=== PATIENT | female | born 1935 | race Caucasian/White ===

== ENCOUNTER 2019-09-26 02:47 | Emergency (ER) | payer MEDICARE ==
[2019-09-26] MEDS ORDERED: Morphine 2 MG/ML SYRINGE ONE ×2 (03:40→05:19)
[2019-09-26] MEDS ORDERED: Ondansetron PF 4 MG/2 ML Vial ONE (03:41)
[2019-09-26] MEDS ORDERED: Sodium Chloride 0.9% 1,000 ML ONE (03:41)
[2019-09-26 04:03] LABS: ALT (SGPT) 13 U/L (8-55); AST (SGOT) 17 U/L (5-34); Alkaline Phosphatase 103 U/L (40-110); Anion Gap 17 mmol/L (10-20); BUN (Urea Nitrogen) 16 mg/dL (9.8-20.1); Bilirubin, Total 0.8 mg/dL (0.2-1.2); Calc. Creatinine Clearance 0 mL/min (70-130); Calcium 9.3 mg/dL (7.8-10.44); Carbon Dioxide 20 mmol/L (23-31); Chloride 110 mmol/L (98-107); Estimated GFR-MDRD 56; Globulin 2.8 g/dL (2.4-3.5); Glucose 129 mg/dL (83-110); Lipase 39 U/L (8-78); Potassium 3.8 mmol/L (3.5-5.1); Protein, Total 6.8 g/dL (6.0-8.3); Sodium 143 mmol/L (136-145)
[2019-09-26 04:29] LABS: Hemoglobin 15.2 g/dL (12.0-16.0); Mean Corpuscular Hemoglobin 28.9 pg (27.0-31.0); Mean Corpuscular Volume 91.9 fL (78.0-98.0); Red Blood Cell (RBC) Count 5.24 mill/uL (4.20-5.40); White Blood Cell (WBC) Count 14.7 thou/uL (4.8-10.8)
[2019-09-26 04:30] LABS: %Lymphocytes 2.2 % (21.0-51.0); %Neutrophils 96.3 % (42.0-75.0); Manual Diff?? YES; Mean Corpuscular HGB CONC 31.5 g/dL (32.0-36.0); Platelet Count 221 thou/uL (130-400)
[2019-09-26 04:31] LABS: #Basophils 0.1 thou/uL (0.0-0.2); #Monocytes 0.1 thou/uL (0.11-0.59); #Neutrophils 14.2 thou/uL (1.40-6.50); %Basophils 0.5 % (0.0-1.0); Band 17 % (5-11); Eosinophils 0 % (0-10); Lymphocytes 3 % (21-51); MDiff Complete? YES; Monocytes 0 % (0-10); Neutrophil 80 % (42-75); Reactive Lymphocytes 0 % (0-10)
[2019-09-26 04:36] LABS: Clarity TURBID (Clear)
[2019-09-26 04:37] LABS: Bilirubin Small (Negative); Blood, Urine Large (Negative); Glucose, Urine (Dipstick) Negative (Negative); Leukocyte Large (Negative); Nitrite Positive (Negative); Protein, Urine (Dipstick) 100 mg/dL (Neg-Trace)
[2019-09-26 04:38] LABS: Bacteria/HPF 3+ HPF (None Seen); RBC/HPF Greater than 50 HPF (0-3); Squamous Epithelial 0-3 HPF (0-3); Yeast-Budding 1+ HPF (None Seen)
[2019-09-26] MEDS ORDERED: cefTRIAXone\\ROCEPHIN 2 GM VIAL ONE (04:59)
[2019-09-26] MEDS ORDERED: Gentamicin 80 MG/2 ML VIAL ONE (05:57)
[2019-09-26] MEDS ORDERED: Sodium Chloride 0.9% 100 ML BAG ONE (07:21)
--- NOTE | 2019-09-26 09:39 | RAD ---
CHEST 2 VIEWS: Date: 09/26/19 HISTORY: Chest and abdomen pain. Elevated D-Dimer. FINDINGS: Very severe scoliotic changes. There are fractured stabilization Borden rods noted on the right s sukhwinder and the left side. Severe left hemidiaphragm elevation. There is severe resultant deformity of th e chest, as well as the thoracolumbar vertebral column. No confluent pneumonia, overt edema, or pleur al effusion. IMPRESSION: Severe scoliotic deformity of the thoracolumbar vertebral column with resultant deformity of the ches t. Fractured Borden rods. No confluent pneumonia. POS: [facility]
[2019-09-26] MEDS ORDERED: Iopamidol 370 76% 125 ML VIAL FS ONE (09:40)
--- NOTE | 2019-09-26 09:46 | CT ---
PRELIMINARY REPORT/[facility]/AFTER HOURS PROCEDURE EXAM: CTA Chest with Intravenous Contrast CTA Abdomen and Pelvis with Intravenous Contrast. CLINICAL HISTORY: Elevated d dimer (2.65); h/o severe scoliosis; originally came in with chest pain which was dissipate d since she has been in the ER TECHNIQUE: Axial CTA images of the chest, abdomen and pelvis with intravenous contrast. MIP reconstructed images were created and reviewed. CONTRAST: With; ISOVUE 370 - 120 MLS COMPARISON: None provided. FINDINGS: VASCULATURE Aorta: Dense aortic atherosclerosis extending throughout the major arterial branches. Pulmonary arteries: The pulmonary arteries are adequately opacified. No pulmonary embolism. Great vessels of aortic arch: No acute finding. No dissection. No arterial occlusion or significant s tenosis. Celiac trunk: No acute finding. No occlusion or significant stenosis. Superior mesenteric artery: No acute finding. No occlusion or significant stenosis. Inferior mesenteric artery: No acute finding. No occlusion or significant stenosis. Renal arteries: No acute finding. No occlusion or significant stenosis. Iliac arteries: No acute finding. No occlusion or significant stenosis. CHEST Lungs: Unremarkable. No mass. No consolidation. Pleural spaces: No pleural effusion. No pneumothorax. Heart and mediastinum: No cardiomegaly. No significant pericardial effusion. ABDOMEN Liver: Unremarkable. No mass. Gallbladder and bile ducts: No calcified stone. No ductal dilation. Pancreas: Unremarkable. No ductal dilation. Spleen: Unremarkable. Adrenals: No mass. Kidneys and ureters: The kidneys enhance symmetrically. No hydronephrosis. No solid mass. Stomach and bowel: No obstruction. No bowel wall thickening. No CT evidence of acute diverticulitis. Appendix: No CT evidence for appendicitis. PELVIS Bladder: Unremarkable. Reproductive: Unremarkable as visualized. Peritoneum: No free fluid. No free air. Lymph nodes: No lymphadenopathy. Bones and soft tissues: Severe scoliosis with degenerative changes. Scoliosis fixation device with intramedullary rods. MISCELLANEOUS Elevation of the left hemidiaphragm. IMPRESSION: 1. Severe scoliosis with degenerative changes. 2. Dense aortic atherosclerosis extending throughout the major arterial branches. 3. Elevation of the left hemidiaphragm. ELECTRONICALLY SIGNED BY: Philippe Dunlap M.D. Sep 26, 2019 5:20:11 AM INDUSTRIAL CHEMIST This report is intended for review by the ordering physician only, in accordance of law. If you recei ve this report in error, please call [facility] at [phone]. FINAL REPORT CT ANGIOGRAM CHEST: CT ANGIOGRAM ABDOMEN HISTORY: Abnormal ultrasound suggested on recent noncontrast study. TECHNIQUE: CT angiogram of the thoracic and abdominal aorta performed in the axial plane. Three-dimensional refo rmatted images are submitted for interpretation. FINDINGS: No mediastinal mass, lymphadenopathy or hematoma. Trachea and central bronchi are patent. Chronic andreia nges in the lung parenchyma are suspected. Elevation of the left hemidiaphragm. CT ABDOMEN: Redemonstration of left sided hydronephrosis. Visualized ureter does not demonstrate any obvious obstructing calculus. Retrograde IVP may be beneficial. There is slight decreased enhancement of the left kidney. This was not commented upon the initial report by [facility]. No mesenteric mass, lymphadenopathy, free air or free fluid. Appropriate enhancement of the solid organs. There does appear to be a right hemicolectomy. No obvious colonic obstruction. Diverticulosis without evidence of diverticulitis. CT PELVIS: No abnormal enhancement. Uterus and adnexal structures are unremarkable. Osseous structures: Stable scoliosis. Thoracic and abdominal aorta: There is extensive calcified and noncalcified plaque. No aneurysm or di ssection. Ectasia of the aorta is compatible with the patient's scoliosis. There is short segment mod erate stenosis due to noncalcified plaque in the infrarenal and abdominal aorta. Celiac artery origin , superior mesenteric artery origin and bilateral renal artery ostia appear to be patent. Aortic bifu rcation, iliac arteries and inferior mesenteric artery are grossly unremarkable. IMPRESSION: 1. This report is in agreement with the initial report by [facility] in that there is extensive atherosclerosis without major branch occlusion however the initial report does not comment upon shor t segment moderate stenosis of the infrarenal abdominal aorta due to noncalcified plaque. Additionall y the initial report does not comment upon left sided hydronephrosis. 2. Slightly decreased enhancement of the left kidney when compared to the contralateral side secondar y to obstruction. This was not commented upon the initial report. The results of the study were discussed with Dr. Key in the ED on 09/26/2019 at 8:27 a.m. CODE QA POS: OFF
--- NOTE | 2019-09-26 10:16 | CT ---
PRELIMINARY REPORT/[facility]/EMERGENCY AFTER HOURS PROCEDURE: EXAM: CT Abdomen and Pelvis Without Intravenous Contrast CLINICAL HISTORY: Abd. pain r/o stone pain to back TECHNIQUE: Axial computed tomography images of the abdomen and pelvis without intravenous contrast. CONTRAST: None. COMPARISON: None provided. FINDINGS: LUNG BASES: No basilar airspace consolidation or pleural effusion. LIVER: Unremarkable. GALLBLADDER AND BILE DUCTS: Unremarkable. No calcified stone. No ductal dilation. PANCREAS: Unremarkable. SPLEEN: Unremarkable. ADRENAL GLANDS: Unremarkable. KIDNEYS, URETERS, AND BLADDER: Left parapelvic renal cysts. Nonobstructing right renal stone STOMACH AND BOWEL: No obstruction. No wall thickening. No CT evidence of colitis or acute diverticuli tis. APPENDIX: No CT evidence for appendicitis. PERITONEUM: No free fluid. No free air. LYMPH NODES: No lymphadenopathy. REPRODUCTIVE: Unremarkable as visualized. VASCULATURE: Dense aortic atherosclerosis ABDOMINAL WALL AND SOFT TISSUES: Unremarkable. BONES: Scoliosis is seen with thoracolumbar fusion. IMPRESSION: 1. Scoliosis deformity. 2. Nonobstructing right renal stone. 3. Left parapelvic renal cyst. 4. Sigmoid diverticulosis coli without diverticulitis ELECTRONICALLY SIGNED BY: Philippe Dunlap M.D. Sep 26, 2019 4:29:52 AM TREE MARKER This report is intended for review by the ordering physician only, in accordance of law. If you recei ve this report in error, please call [facility] at [phone]. FINAL REPORT CT ABDOMEN WITHOUT CONTRAST CT PELVIS WITHOUT CONTRAST: Date: 09/26/19 HISTORY: Pain. COMPARISON: None. FINDINGS: ABDOMEN CT: Lung bases are clear. Limited evaluation of solid organs by lack of IV contrast. Grossly no solid organ abnormality. No mesenteric mass, lymphadenopathy, free air, or free fluid. Limited evaluation of the alimentary canal by the absence of oral contrast. No evidence of small trista l obstruction. Findings suggest a right hemicolectomy. Left colon diverticulosis, without evidence of diverticulitis . Moderate left-sided hydronephrosis and dilatation of the visualized ureter. No obvious left ureteral calculus. Better evaluation with retrograde IVP is recommended. CT PELVIS: No calcifications within the urinary bladder. No pelvic mass, lymphadenopathy, free air, or free flui d. Marked scoliosis with evidence of previous fusion hardware placement. IMPRESSION: This report is in DISAGREEMENT with the preliminary report by [facility]. 1. There is left-sided hydronephrosis and hydroureter without definite obstructing calculus. Retrogr yanira IVP is recommended. 2. Diverticulosis, without evidence of diverticulitis. Results of study discussed with Dr. Bates on 09/26/19 at 0814 hours. CODE CR. POS: OFF
== END 2019-09-26 06:01 | disposition short-term general hospital (02) ==
LOC: MADERS 02:47
DX: A41.9 Sepsis, unspecified organism (principal); N10 Acute pyelonephritis; M41.9 Scoliosis, unspecified
CPT/HCPCS: 36415; 71046; 71275; 72191; 74175; 74176; 80053; 81003; 81015; 83605; 83690; 85025; 85379; 87040; 87077; 87086; 87149; 87186; 93005; 96361; 96365; 96375; J0696; J1580; J2270; J2405; J3490; J7050; Q9967

== ENCOUNTER 2023-07-07 20:55 | Emergency (ER) | payer MEDICARE ==
[2023-07-07 21:44] LABS: #Lymphocytes 0.5 thou/uL (1.20-3.40); #Monocytes 0.5 thou/uL (0.11-0.59); #Neutrophils 8.8 thou/uL (1.40-6.50); %Basophils 0.5 % (0.0-1.0); %Eosinophils 0.1 % (0.0-10.0); %Lymphocytes 5.2 % (21.0-51.0); %Neutrophils 89.3 % (42.0-75.0); Hematocrit 43.3 % (36.0-47.0); Hemoglobin 14.3 g/dL (12.0-16.0); Mean Corpuscular HGB CONC 33.1 g/dL (32.0-36.0); Mean Corpuscular Volume 93.5 fl (78.0-98.0); Mean Platelet Volume 8.7 fL (7.4-10.4); Platelet Count 270 10x3/uL (130-400); RBC Distribution Width 14.3 % (11.5-14.5); Red Blood Cell (RBC) Count 4.62 mill/uL (4.20-5.40); White Blood Cell (WBC) Count 9.9 10x3/uL (4.8-10.8)
[2023-07-07 21:49] LABS: Bacteria/HPF 3+ HPF (None Seen); Bilirubin Moderate (Negative); Blood, Urine Large (Negative); CAUTI Indications for Culture Pelvic or flank pain; Clarity Turbid (Clear); Glucose, Urine (Dipstick) 100 mg/dL (Negative); Ketone, Urine 40 mg/dL (Negative); Leukocyte Large (Negative); Nitrite Positive (Negative); Protein, Urine (Dipstick) > or equal to 300 mg/dL (Neg-Trace); RBC/HPF Greater than 50 HPF (0-3); WBC/HPF Greater than 50 HPF (0-3); pH, Urine 8.5 (5.0-9.0)
[2023-07-07 21:50] LABS: Urine Culture Reflex Yes Yes
[2023-07-07] MEDS ORDERED: cefTRIAXone (ROCEPHIN) 1 GM VIAL ONE (21:50)
[2023-07-07] MEDS ORDERED: Sodium Chloride 0.9% 100 ML ONE (21:50)
[2023-07-07 21:52] LABS: INR-International Normal Ratio 1.1; Prothrombin Time 14.1 sec (12.0-14.7)
[2023-07-07 21:53] LABS: PTT 30.1 sec (22.9-36.1)
[2023-07-07 22:02] LABS: ALT (SGPT) 10 U/L (8-55); AST (SGOT) 13 U/L (5-34); Albumin 3.9 g/dL (3.4-4.8); Alkaline Phosphatase 87 U/L (40-110); Anion Gap 21 mmol/L (10-20); BUN (Urea Nitrogen) 23 mg/dL (9.8-20.1); Bilirubin, Total 0.3 mg/dL (0.2-1.2); Calc. Creatinine Clearance 0 mL/min (70-130); Calcium 9.6 mg/dL (7.8-10.44); Carbon Dioxide 17 mmol/L (23-31); Chloride 112 mmol/L (98-107); Estimated GFR 47; Globulin 3.1 g/dL (2.4-3.5); Glucose 162 mg/dL (83-110); Potassium 4.3 mmol/L (3.5-5.1); Sodium 146 mmol/L (136-145)
[2023-07-07 22:10] LABS: Troponin I Less than 0.010 ng/mL (< 0.028)
[2023-07-07] MEDS ORDERED: Prochlorperazine 10 MG/2 ML VIAL ONE (22:24)
[2023-07-07] MEDS ORDERED: Acetaminophen 325 MG TAB ONE (23:54)
== END 2023-07-08 | disposition short-term general hospital (02) ==
LOC: MADERS 20:55
DX: N21.0 Calculus in bladder (principal); N13.30 Unspecified hydronephrosis; T83.192A Other mechanical complication of indwelling ureteral stent, initial encounter; R00.0 Tachycardia, unspecified
CPT/HCPCS: 36415; 51701; 74176; 80053; 81001; 83605; 84484; 85025; 85610; 85730; 87040; 87077; 87086; 87186; 93005; 94760; 96361; 96365; 96375; J0696; J0780; J3490

== ENCOUNTER 2023-07-29 05:40 | Emergency (ER) | payer MEDICARE ==
[2023-07-29 06:37] LABS: #Basophils 0.1 thou/uL (0.0-0.2); #Lymphocytes 1.1 thou/uL (1.20-3.40); #Monocytes 0.8 thou/uL (0.11-0.59); #Neutrophils 16.3 thou/uL (1.40-6.50); %Basophils 0.5 % (0.0-1.0); %Lymphocytes 6.2 % (21.0-51.0); %Monocytes 4.5 % (0.0-10.0); %Neutrophils 88.8 % (42.0-75.0); Hematocrit 52.4 % (36.0-47.0); Hemoglobin 16.9 g/dL (12.0-16.0); Mean Corpuscular HGB CONC 32.3 g/dL (32.0-36.0); Mean Corpuscular Hemoglobin 30.1 pg (27.0-31.0); Mean Platelet Volume 7.9 fL (7.4-10.4); Platelet Count 632 10x3/uL (130-400); RBC Distribution Width 14.7 % (11.5-14.5); Red Blood Cell (RBC) Count 5.64 mill/uL (4.20-5.40); White Blood Cell (WBC) Count 18.3 10x3/uL (4.8-10.8)
[2023-07-29] MEDS ORDERED: cefTRIAXone (ROCEPHIN) 1 GM VIAL ONE (06:42)
[2023-07-29] MEDS ORDERED: Sodium Chloride 0.9% 100 ML ONE ×2 (06:42→08:34)
[2023-07-29 06:51] LABS: ALT (SGPT) 10 U/L (8-55); AST (SGOT) 17 U/L (5-34); Albumin 4.1 g/dL (3.4-4.8); Alkaline Phosphatase 111 U/L (40-110); Anion Gap 24 mmol/L (10-20); BUN (Urea Nitrogen) 47 mg/dL (9.8-20.1); Bilirubin, Total 0.5 mg/dL (0.2-1.2); Calc. Creatinine Clearance 0 mL/min (70-130); Calcium 10.4 mg/dL (7.8-10.44); Carbon Dioxide 13 mmol/L (23-31); Chloride 105 mmol/L (98-107); Estimated GFR 36; Globulin 3.7 g/dL (2.4-3.5); Glucose 162 mg/dL (83-110); Lipase 29 U/L (8-78); Magnesium 2.3 mg/dL (1.6-2.6); Potassium 4.2 mmol/L (3.5-5.1); Protein, Total 7.8 g/dL (5.8-8.1); Sodium 138 mmol/L (136-145)
[2023-07-29] MEDS ORDERED: Sodium Chloride 0.9% 500 ML ONE (06:55)
[2023-07-29] MEDS ORDERED: Ondansetron PF 4 MG/2 ML Vial ONE (07:07)
[2023-07-29 07:09] LABS: Bilirubin Moderate (Negative); Blood, Urine Large (Negative); Clarity Turbid (Clear); Glucose, Urine (Dipstick) Negative (Negative); Ketone, Urine 15 mg/dL (Negative); Leukocyte Large (Negative); Nitrite Positive (Negative); Protein, Urine (Dipstick) > or equal to 300 mg/dL (Neg-Trace); pH, Urine 8.5 (5.0-9.0)
[2023-07-29 07:10] LABS: RBC/HPF Greater than 50 HPF (0-3)
[2023-07-29 07:11] LABS: Bacteria/HPF 2+ HPF (None Seen); CAUTI Indications for Culture Pelvic or flank pain; Squamous Epithelial 0-3 HPF (0-3); WBC/HPF 21-50 HPF (0-3)
[2023-07-29 07:13] LABS: Urine Culture Reflex Yes Yes
[2023-07-29] MEDS ORDERED: Sodium Chloride 0.9% 1,000 ML ONE (07:47)
[2023-07-29] MEDS ORDERED: Meropenem 1 GM VIAL ONE (08:34)
== END 2023-07-29 08:45 | disposition short-term general hospital (02) ==
LOC: MADERS 05:40
DX: A41.9 Sepsis, unspecified organism (principal); N39.0 Urinary tract infection, site not specified; R41.82 Altered mental status, unspecified; E86.0 Dehydration; R79.89 Other specified abnormal findings of blood chemistry; R00.0 Tachycardia, unspecified
CPT/HCPCS: 70450; 71045; 74176; 80053; 82140; 83605; 83690; 83735; 84484; 85025; 87040; 87077; 87086; 87186; 93005; J0696; J2185; J2405; J3490; J7030; J7050

== ENCOUNTER 2024-07-31 18:58 | Emergency (ER) | payer MEDICARE ==
[~2024-07-31 18:58] MED LIST: Iopamidol 370 76% 100 ML VIAL ONE
[2024-07-31 19:52] LABS: Anion Gap 14 mmol/L (10-20); BUN (Urea Nitrogen) 11 mg/dL (9.8-20.1); Band 2 % (5-11); Calc. Creatinine Clearance 0 mL/min (70-130); Calcium 8.1 mg/dL (7.8-10.44); Carbon Dioxide 24 mmol/L (23-31); Chloride 106 mmol/L (98-107); Estimated GFR 68; Glucose 96 mg/dL (83-110); Hematocrit 31.5 % (36.0-47.0); Hemoglobin 9.6 g/dL (12.0-16.0); Hypochromia SLIGHT = 6-15 cells (100X) (0-5/hpf); Lymphocytes 10 % (21-51); MDiff Complete? YES; Mean Corpuscular HGB CONC 30.6 g/dL (32.0-36.0); Mean Corpuscular Hemoglobin 26.9 pg (27.0-31.0); Mean Platelet Volume 5.8 fL (7.4-10.4); Microcytosis SLIGHT = 6-15 cells (100X) (0-5/hpf); Monocytes 11 % (0-10); Neutrophil 77 % (42-75); Platelet Count 395 10x3/uL (130-400); Potassium 3.3 mmol/L (3.5-5.1); RBC Distribution Width 16.7 % (11.5-14.5); Red Blood Cell (RBC) Count 3.58 mill/uL (4.20-5.40); Sodium 141 mmol/L (136-145)
[2024-07-31 20:13] LABS: Clarity Turbid (Clear)
[2024-07-31 20:15] LABS: RBC/HPF 0-3 HPF (0-3); WBC/HPF Greater than 50 HPF (0-3)
[2024-07-31 20:16] LABS: Bacteria/HPF 3+ HPF (None Seen); Squamous Epithelial 0-3 HPF (0-3)
[2024-07-31 20:23] LABS: Urine Culture Reflex Yes Yes
[2024-07-31] MEDS ORDERED: cefTRIAXone (ROCEPHIN) 2 GM VIAL ONE (21:39)
[2024-07-31] MEDS ORDERED: Ketorolac Tromethamine 30 MG (1 mL) VIAL ONE (21:39)
[2024-07-31] MEDS ORDERED: Potassium Chloride 20 MEQ TAB ONE (22:54)
[2024-07-31] MEDS ORDERED: Morphine 2 MG/ML VIAL ONE (22:55)
== END 2024-07-31 23:18 | disposition short-term general hospital (02) ==
LOC: MADERS 18:58
DX: N13.30 Unspecified hydronephrosis (principal); N39.0 Urinary tract infection, site not specified; E87.6 Hypokalemia; R00.0 Tachycardia, unspecified
CPT/HCPCS: 74177; 80048; 81001; 81015; 85025; 87040; 87086; 93005; J0696; J1885; J2272; Q9967; 36415; 87077; 87186; 96361; 96374; 96375

== ENCOUNTER 2025-04-23 06:30 | Emergency (ER) | payer MEDICARE ==
[2025-04-23] MEDS ORDERED: NOREPINEPHRINE 8 MG/250 ML-D5W 250 ML ONE (06:38)
[2025-04-23] MEDS ORDERED: Calcium Gluc 4.6 MEQ/10 ML (100 MG/ML) ONE (06:45)
[2025-04-23] MEDS ORDERED: Ondansetron PF 4 MG/2 ML Vial ONE (06:48)
[2025-04-23 06:53] LABS: #Basophils 0.1 thou/uL (0.0-0.2); #Eosinophils 0.9 thou/uL (0.0-0.7); #Lymphocytes 2.9 thou/uL (1.20-3.40); #Monocytes 0.6 thou/uL (0.11-0.59); #Neutrophils 10.4 thou/uL (1.40-6.50); %Basophils 0.9 % (0.0-1.0); %Eosinophils 6.1 % (0.0-10.0); %Lymphocytes 19.3 % (21.0-51.0); %Monocytes 4.1 % (0.0-10.0); %Neutrophils 69.6 % (42.0-75.0); Hematocrit 28.6 % (36.0-47.0); Hemoglobin 8.9 g/dL (12.0-16.0); Mean Corpuscular Hemoglobin 28.3 pg (27.0-31.0); Mean Corpuscular Volume 91.2 fl (78.0-98.0); Platelet Count 527 10x3/uL (130-400); Red Blood Cell (RBC) Count 3.14 mill/uL (4.20-5.40); White Blood Cell (WBC) Count 15.0 10x3/uL (4.8-10.8)
[2025-04-23] MEDS ORDERED: cefTRIAXone (ROCEPHIN) 1 GM VIAL ONE (06:53)
[2025-04-23] MEDS ORDERED: Pantoprazole 40 MG VIAL ONE ×2 (06:54→07:08)
[2025-04-23 07:09] LABS: ALT (SGPT) 7 U/L (Less than 34); AST (SGOT) 13 U/L (11-34); Albumin 2.4 g/dL (3.1-4.5); Alkaline Phosphatase 80 U/L (40-110); Anion Gap 21 mmol/L (10-20); BUN (Urea Nitrogen) 20 mg/dL (9.8-20.1); Bilirubin, Total 0.2 mg/dL (0.3-1.2); CK (CPK) 19 U/L (29-168); Calc. Creatinine Clearance 0 mL/min (70-130); Calcium 8.4 mg/dL (7.8-10.44); Carbon Dioxide 16 mmol/L (23-31); Chloride 113 mmol/L (98-107); Globulin 2.7 g/dL (2.4-3.5); Glucose 248 mg/dL (83-110); Potassium 3.8 mmol/L (3.5-5.1); Sodium 146 mmol/L (136-145)
[2025-04-23 07:19] LABS: Acetaminophen Less than 10 mcg/mL (Less than 10); Lipase 182 U/L (8-78); Magnesium 2.0 mg/dL (1.6-2.6); Salicylate Less than 8.0 mg/dL (Less than 8.0)
[2025-04-23] MEDS ORDERED: Rocuronium Bromide 10 MG/ML (10ML VIAL) ONE (07:19)
[2025-04-23] MEDS ORDERED: Ketamine 50 MG/ML (10ML VIAL) ONE (07:20)
[2025-04-23 07:23] LABS: INR-International Normal Ratio 1.2; Prothrombin Time 14.8 sec (12.0-14.7)
[2025-04-23 07:24] LABS: PTT 31.2 sec (22.9-36.1)
[2025-04-23 07:25] LABS: Troponin I Less than 0.010 ng/mL (< 0.028)
[2025-04-23] MEDS ORDERED: PROPOFOL 0 ML ONE (07:26)
[2025-04-23 07:55] LABS: Bicarbonate (HCO3v) 19.3 mmol/L (22.0-28.0); CO2 Tension (PvCO2) 38.2 mmHg (42.0-51.0)
[2025-04-23 07:56] LABS: Calcium, Ionized 1.24 mmol/L (1.15-1.33); Chloride 114 mmol/L (98-107); Hemoglobin - Calc 9.0 g/dL (12.0-16.0); Potassium 3.4 mmol/L (3.5-5.1); Sodium 144 mmol/L (138-145); T. Carbon Dioxide 20.5 mmol/L (22.0-28.0); vO2 Saturation-calc 99.3 % (60.0-85.0)
[2025-04-23] MEDS ORDERED: Sodium Bicarb 50 MEQ/50 ML Abboject 8.4% SYRINGE ONE (09:00)
== END 2025-04-23 08:13 | disposition short-term general hospital (02) ==
LOC: MADERS 06:30
DX: K92.2 Gastrointestinal hemorrhage, unspecified (principal); R57.8 Other shock
CPT/HCPCS: 31500; 36416; 36430; 71045; 80053; 80307; 82330; 82435; 82550; 82803; 83690; 83735; 83880; 84132; 84295; 84484; 85014; 85025; 85610; 85730; 86850; 86900; 86901; 87040; 87077; 87149; 87186; 93005; 94760; 96365; 96366; 96368; 96375; J0612; J0696; J2354; J2405; J2470; J2704; P9016